=== PATIENT | female | born 1930 | race Two or more races ===

== ENCOUNTER 2017-10-11 10:24 | Emergency (ER) | payer OTHER ==
[~2017-10-11] VITALS: Ht 154.9 cm; Wt 90.7 kg
[~2017-10-11 10:24] MED LIST: CADUET 10 MG/101 TAB; DETROL LA4 MG PO; DITROPAN X10 MG/BOTT; EVISTA60 MG PO; HYDRALAZINE HC100 MG; HYDRALAZINE HCL50 MG PO; INDERAL LA80 MG PO; INTESTINEX680 MG PO; LASIX20 MG PO; LEVAQUIN500 MG PO; NEURONTIN300 MG PO; NORTUSS-EX LIQ118 ML PO; NORVASC10 MG PO; TESSALON PERLE100 MG PO; ULTRACET; VALTREX1000 MG PO
== END 2017-10-11 22:05 | disposition home or self-care (01) ==
LOC: ER 10:24
DX: K64.8 Other hemorrhoids (principal); K59.09 Other constipation; L30.8 Other specified dermatitis; K56.41 Fecal impaction

== ENCOUNTER 2018-05-07 07:03 | Day surgery (SDC) | payer OTHER | END 2018-05-07 13:25 | disposition home or self-care (01) | LOC: AMB-ENDOS 07:03 | DX: K64.8 Other hemorrhoids (principal); K57.30 Diverticulosis of large intestine without perforation or abscess without bleeding ==

== ENCOUNTER 2019-04-27 15:38 | Emergency (ER) | payer OTHER ==
[~2019-04-27] VITALS: Ht 154.9 cm; Wt 90.7 kg
== END 2019-04-27 20:19 | disposition home or self-care (01) ==
LOC: ER 15:38
DX: J06.9 Acute upper respiratory infection, unspecified (principal); J01.90 Acute sinusitis, unspecified

== ENCOUNTER 2020-01-19 14:17 | Outpatient (CLI) | payer OTHER ==
[~2020-01-19 14:17] MED LIST changes: -VOLTAREN100 GM TOP
[2020-01-21] MEDS ORDERED: VOLTAREN100 GM TOP (10:05)
== END 2020-01-19 14:56 | disposition home or self-care (01) ==
LOC: NUCLEAR 14:17
PROVIDERS: ATTEND Orthopaedic Surgery
DX: M81.0 Age-related osteoporosis without current pathological fracture (principal)

== ENCOUNTER → 2020-01-19 | Outpatient (CLI) | payer OTHER ==
[~2020-01-19] MED LIST changes: +VOLTAREN100 GM TOP
== END | disposition home or self-care (01) ==
LOC: RAD 13:39
PROVIDERS: ATTEND Orthopaedic Surgery
DX: M25.551 Pain in right hip (principal); M25.552 Pain in left hip; Z96.653 Presence of artificial knee joint, bilateral

== ENCOUNTER → 2020-04-12 12:45 | Outpatient (CLI) | payer OTHER ==
[~2020-04-12 12:45] MED LIST changes: +AMITRIPTYLINE H25 MG PO; +VOLTAREN100 GM TOP
== END | disposition home or self-care (01) ==
LOC: LAB 12:45
PROVIDERS: ATTEND Orthopaedic Surgery
DX: M85.88 Other specified disorders of bone density and structure, other site (principal); E21.2 Other hyperparathyroidism; E88.89 Other specified metabolic disorders; M81.8 Other osteoporosis without current pathological fracture; E56.1 Deficiency of vitamin K; E55.9 Vitamin D deficiency, unspecified

== ENCOUNTER 2020-04-12 13:29 | Outpatient (CLI) | payer OTHER | END 2020-04-12 13:43 | disposition home or self-care (01) | LOC: RAD 13:29 | PROVIDERS: ATTEND Orthopaedic Surgery | DX: M19.032 Primary osteoarthritis, left wrist (principal); M19.031 Primary osteoarthritis, right wrist; M25.531 Pain in right wrist; M25.532 Pain in left wrist ==

== ENCOUNTER 2020-12-06 10:03 | Outpatient (CLI) | payer OTHER | END 2020-12-06 15:11 | disposition home or self-care (01) | LOC: LAB 10:03 | PROVIDERS: ATTEND Orthopaedic Surgery | DX: E83.42 Hypomagnesemia (principal); M85.89 Other specified disorders of bone density and structure, multiple sites; E88.89 Other specified metabolic disorders; M81.8 Other osteoporosis without current pathological fracture; E56.1 Deficiency of vitamin K ==

== ENCOUNTER → 2020-12-06 10:47 | Outpatient (CLI) | payer OTHER ==
[~2020-12-06 10:47] MED LIST changes: +ATIVAN1 M1; +NORVASC5 MG PO; +TOPROL XL100 M1
== END | disposition home or self-care (01) ==
LOC: MRI 10:47
PROVIDERS: ATTEND Orthopaedic Surgery
DX: M54.17 Radiculopathy, lumbosacral region (principal)
CPT/HCPCS: 72148

== ENCOUNTER 2021-01-12 16:47 | Emergency (ER) | payer OTHER ==
[~2021-01-12] VITALS: Ht 154.9 cm; Wt 68.0 kg
[~2021-01-12 16:47] MED LIST changes: -ATIVAN1 M1; -NORVASC5 MG PO; -TOPROL XL100 M1
[2021-01-12] MEDS ORDERED: TOPROL XL100 M1 (16:56)
[2021-01-12] MEDS ORDERED: NORVASC5 MG PO (16:56)
[2021-01-12] MEDS ORDERED: ATIVAN1 M1 (16:57)
== END 2021-01-29 | disposition home or self-care (01) ==
LOC: ER 16:47
DX: S80.12XA Contusion of left lower leg, initial encounter (principal); W18.39XA Other fall on same level, initial encounter; Y93.89 Activity, other specified; Y92.238 Other place in hospital as the place of occurrence of the external cause; Y99.8 Other external cause status

== ENCOUNTER 2021-02-16 00:24 | Inpatient (IN) | payer OTHER ==
[~2021-02-16] VITALS: Ht 154.9 cm; Wt 63.5 kg
[~2021-02-16 00:24] MED LIST changes: +ATIVAN1 M1; +NORVASC5 MG PO; +TOPROL XL100 M1
[2021-02-24] MEDS ORDERED: VANCOMYCIN HCL125 MG PO (14:27)
[2021-02-24] MEDS ORDERED: TOPROL XL50 M1 PO (14:27)
[2021-02-24] MEDS ORDERED: PROTONIX40 MG PO (14:27)
== END 2021-02-24 19:20 | disposition home or self-care (01) | DRG 378 ==
LOC: ER 00:24 → MEDI 19:10
PROVIDERS: ADMIT Internal Medicine; ATTEND Internal Medicine
PROC: 30233N1 Transfusion of Nonautologous Red Blood Cells into Peripheral Vein, Percutaneous Approach (ICD-10-PCS; principal; 2021-02-16)
PROC: 8E0ZXY6 Isolation (ICD-10-PCS; 2021-02-18)
PROC: 4A12X4Z Monitoring of Cardiac Electrical Activity, External Approach (ICD-10-PCS; 2021-02-18)
PROC: 0DB68ZX Excision of Stomach, Via Natural or Artificial Opening Endoscopic, Diagnostic (ICD-10-PCS; 2021-02-22)
DX: K92.1 Melena (principal); N13.6 Pyonephrosis; E87.1 Hypo-osmolality and hyponatremia; D64.9 Anemia, unspecified; I10 Essential (primary) hypertension; E86.0 Dehydration; S82.891D Other fracture of right lower leg, subsequent encounter for closed fracture with routine healing; Z20.822 Contact with and (suspected) exposure to COVID-19; B96.5 Pseudomonas (aeruginosa) (mallei) (pseudomallei) as the cause of diseases classified elsewhere; E87.6 Hypokalemia; W18.39XD Other fall on same level, subsequent encounter; B96.89 Other specified bacterial agents as the cause of diseases classified elsewhere; I48.91 Unspecified atrial fibrillation

== ENCOUNTER 2021-03-29 07:46 | Outpatient (CLI) | payer OTHER ==
[~2021-03-29 07:46] MED LIST changes: +PROTONIX40 MG PO; +TOPROL XL50 M1 PO; +VANCOMYCIN HCL125 MG PO
== END 2021-03-29 07:47 | disposition home or self-care (01) ==
LOC: NUCLEAR 07:46
DX: I82.492 Acute embolism and thrombosis of other specified deep vein of left lower extremity (principal); M87.88 Other osteonecrosis, other site

== ENCOUNTER 2021-03-29 08:52 | Outpatient (CLI) | payer OTHER | END 2021-03-29 09:09 | disposition home or self-care (01) | LOC: MRI 08:52 | DX: M79.662 Pain in left lower leg (principal); I82.492 Acute embolism and thrombosis of other specified deep vein of left lower extremity; M86.8X8 Other osteomyelitis, other site | CPT/HCPCS: 73718 ==

== ENCOUNTER 2021-03-29 14:49 | Inpatient (IN) | payer OTHER ==
[~2021-03-29] VITALS: Ht 157.5 cm; Wt 63.5 kg
[2021-04-06] MEDS ORDERED: AMLODIPINE BESYL5 MG PO (11:42)
[2021-04-06] MEDS ORDERED: ELIQUIS2.5 MG PO (11:42)
[2021-04-06] MEDS ORDERED: LOPRESSOR25 MG PO (11:42)
== END 2021-04-06 15:09 | disposition home or self-care (01) | DRG 300 ==
LOC: ER 14:49 → MEDJ 23:51
PROVIDERS: Radiology Vascular & Interventional Radiology; ADMIT Internal Medicine; ATTEND Internal Medicine
PROC: 06H03DZ Insertion of Intraluminal Device into Inferior Vena Cava, Percutaneous Approach (ICD-10-PCS; principal; 2021-04-05 14:45)
DX: I82.421 Acute embolism and thrombosis of right iliac vein (principal); I48.20 Chronic atrial fibrillation, unspecified; I82.411 Acute embolism and thrombosis of right femoral vein; Z79.01 Long term (current) use of anticoagulants; Z74.01 Bed confinement status; I10 Essential (primary) hypertension; I82.431 Acute embolism and thrombosis of right popliteal vein